=== PATIENT | male | born 1965 | race Two or more races ===

== ENCOUNTER 2021-04-13 00:28 | Emergency (ER) | payer OTHER ==
[~2021-04-13] VITALS: Ht 172.7 cm; Wt 88.5 kg
[2021-04-13 00:31] VITALS: BP 167/101
[2021-04-13 02:03] LABS: Basophils # (auto) 0.1 10 ^3/uL (0-0.2); Basophils % (auto) 0.7 % (0.0-2.0); Eosinophils # (auto) 0.2 10 ^3/uL (0-0.8); Eosinophils % (auto) 2.2 % (0.0-7.0); Hematocrit 42.7 % (41.0-53.0); Hemoglobin 14.9 g/dL (13.5-17.5); Lymphocytes # (auto) 3.3 10 ^3/uL (0.4-5.4); Lymphocytes % (auto) 39.1 % (10.0-50.0); Mean Corpuscular Hemoglobin 32.1 pg (28.0-32.0); Mean Corpuscular Hgb Conc. 34.9 g/dL (32.0-36.0); Monocytes # (auto) 0.8 10 ^3/uL (0-1.3); Monocytes % (auto) 10.1 % (0.0-12.0); Neutrophils % (auto) 47.9 % (37.0-80.0); Red Blood Cells 4.64 10^6/uL (4.5-5.90); Red Cell Distribution Width 13.7 % (11.8-14.3); White Blood Cell 8.4 10^3/uL (4.4-10.8)
[2021-04-13 02:21] LABS: Albumin 3.9 g/dL (3.4-5.0); Calcium 8.9 mg/dL (8.5-10.1); Potassium 3.8 mmol/L (3.5-5.1)
[2021-04-13 02:23] LABS: BUN/Creatinine Ratio 18.1
[2021-04-13 02:27] LABS: Bilirubin, Total 0.8 mg/dL (0.2-1.0); Total Protein 7.5 g/dL (6.4-8.2)
== END 2021-04-13 06:05 | disposition left against medical advice (07) ==
LOC: ER 00:29
DX: R07.89 Other chest pain (principal); Z53.21 Procedure and treatment not carried out due to patient leaving prior to being seen by health care provider
CPT/HCPCS: 36415; 71045; 80053; 83880; 84484; 85025; 93005